=== PATIENT | male | born 1935 | race Caucasian/White ===

== ENCOUNTER 2017-08-01 22:53 | Emergency (ER) | payer MEDICARE, OTHER ==
[~2017-08-01] VITALS: Ht 172.7 cm; Wt 95.5 kg
[2017-08-01] MEDS ORDERED: MIRT15 PO (23:07)
[2017-08-01] MEDS ORDERED: CARB-39 PO (23:07)
[2017-08-01] MEDS ORDERED: VITAD1000 PO (23:07)
[2017-08-01] MEDS ORDERED: SENN-175 PO (23:07)
[2017-08-01] MEDS ORDERED: MIDO5TAB23 PO (23:07)
[2017-08-01] MEDS ORDERED: DSS100 PO (23:07)
[2017-08-01] MEDS ORDERED: SIMV-260 PO (23:07)
[2017-08-01] MEDS ORDERED: FLUD.1 PO (23:07)
[2017-08-02] MEDS ORDERED: LORazepam 2 MG/ML VIAL IM ONE (00:30)
[2017-08-02 00:48] LABS: EOSINOPHILS % (AUTO) 0.3 % (1.0-6.0); HEMATOCRIT 46.1 % (41-53); HEMOGLOBIN 15.7 g/dL (13.5-17.5); LYMPHOCYTES # (AUTO) 0.6 K/uL (1.0-4.8); LYMPHOCYTES % (AUTO) 7.7 % (22.0-44.0); MEAN CORPUSCULAR HEMOGLOBIN 31.5 pg (26.0-34.0); MEAN CORPUSCULAR HGB CONC 34.2 G/dL (31.0-37.0); MEAN CORPUSCULAR VOLUME 92 fL (80-100); MONOCYTES # (AUTO) 0.5 K/uL (0.1-1.0); MONOCYTES % (AUTO) 6.2 % (2.0-9.0); NEUTROPHILS # (AUTO) 6.3 K/uL (1.8-7.7); PLATELET COUNT (AUTO) 136 K/uL (150-450); RED CELL DISTRIBUTION WIDTH 14.1 % (11.5-14.5); WHITE BLOOD COUNT (AUTO) 7.3 K/uL (4.5-11.0)
[2017-08-02 00:57] LABS: NEUTROPHILS % (AUTO) 85.8 % (40.0-70.0)
[2017-08-02 01:06] LABS: ANION GAP 9 mmol/L (8-16); CARBON DIOXIDE 30 mmol/L (22-29); CHLORIDE 101 mmol/L (98-107); CREATININE 0.96 mg/dL (0.60-1.30); GLOMERULAR FILTR. RATE CALC > 60 mL/min (>60); POTASSIUM 3.4 mmol/L (3.5-5.1); SODIUM SERUM 140 mmol/L (136-145); UREA NITROGEN, BLOOD 18 mg/dL (7-18)
[2017-08-02 01:12] LABS: ALANINE AMINOTRANSFERASE 13 U/L (12-78); ASPARTATE AMINOTRANSFERASE 21 U/L (15-37); BILIRUBIN,TOTAL 0.6 mg/dL (0.1-1.0); TOTAL PROTEIN, SERUM 7.8 g/dL (6.4-8.2)
[2017-08-02] MEDS ORDERED: POTASSIUM CHLORIDE 10% 40 MEQ/30 ML LIQUID UDCUP PO ONE (01:45)
[2017-08-02 02:10] VITALS: BP 138/88
== END 2017-08-02 02:10 | disposition home or self-care (01) ==
LOC: EMS 22:56
DX: F41.9 Anxiety disorder, unspecified (principal); G20 Parkinson's disease; E87.6 Hypokalemia; E78.00 Pure hypercholesterolemia, unspecified; F32.9 Major depressive disorder, single episode, unspecified
CPT/HCPCS: 36415; 80053; 84484; 85025; 96372; 99284; J2060

== ENCOUNTER 2017-08-22 15:42 | Emergency (ER) | payer MEDICARE, OTHER ==
[~2017-08-22] VITALS: Ht 172.7 cm; Wt 81.8 kg
[~2017-08-22 15:42] MED LIST: CARB-39 PO; DSS100 PO; FLUD.1 PO; MIDO5TAB23 PO; MIRT15 PO; SENN-175 PO; SIMV-260 PO; VITAD1000 PO
[2017-08-22] MEDS ORDERED: LORazepam 2 MG/ML VIAL IM ONE (18:45)
[2017-08-22 21:22] VITALS: BP 149/88
== END 2017-08-22 21:24 | disposition home or self-care (01) ==
LOC: EMS 15:44
DX: F41.9 Anxiety disorder, unspecified (principal); F32.9 Major depressive disorder, single episode, unspecified; E78.00 Pure hypercholesterolemia, unspecified; I95.9 Hypotension, unspecified; I10 Essential (primary) hypertension
CPT/HCPCS: 96372; 99284; J2060; 99283